=== PATIENT | male | born 1950 | race Caucasian/White ===

== ENCOUNTER 2019-07-18 05:45 | Outpatient (CLI) | payer MEDICARE ==
[2019-07-18 09:36] LABS: Hemoglobin 14.8 g/dL (14.0-18.0); Mean Corpuscular HGB CONC 34.3 g/dL (32.0-36.0); Mean Corpuscular Volume 96.2 fL (78.0-98.0); Mean Platelet Volume 8.3 fL (7.4-10.4); Platelet Count 211 thou/uL (130-400); RBC Distribution Width 11.6 % (11.5-14.5); Red Blood Cell (RBC) Count 4.47 mill/uL (4.70-6.10); White Blood Cell (WBC) Count 4.8 thou/uL (4.8-10.8)
[2019-07-18 09:43] LABS: PTT 31.1 SEC (22.9-36.1); Prothrombin Time 13.4 SEC (12.0-14.7)
[2019-07-18 09:54] LABS: Anion Gap 12 mmol/L (10-20); BUN (Urea Nitrogen) 20 mg/dL (8.4-25.7); Calc. Creatinine Clearance 0 mL/min (70-130); Calcium 9.7 mg/dL (7.8-10.44); Carbon Dioxide 25 mmol/L (23-31); Chloride 108 mmol/L (98-107); Estimated GFR-MDRD 55; Glucose 202 mg/dL (80-115); Potassium 4.7 mmol/L (3.5-5.1); Sodium 140 mmol/L (136-145)
== END 2019-07-18 05:46 | disposition home or self-care (01) ==
LOC: LABBT 05:45
PROVIDERS: ATTEND Surgery
DX: Z01.812 Encounter for preprocedural laboratory examination (principal); M54.16 Radiculopathy, lumbar region; M48.061 Spinal stenosis, lumbar region without neurogenic claudication
CPT/HCPCS: 80048; 85027; 85610; 85730

== ENCOUNTER 2019-07-25 07:03 | Day surgery (SDC) | payer MEDICARE ==
[2019-07-25] MEDS ORDERED: Promethazine HCl 25 MG/ML VIAL SLOW IVP PRN (08:54)
[2019-07-25] MEDS ORDERED: Promethazine HCl 25 MG/ML VIAL IM PRN (08:54)
[2019-07-25] MEDS ORDERED: Ondansetron HCl/PF 4 MG/2 ML Vial IVP PRN (08:54)
[2019-07-25] MEDS ORDERED: Fentanyl 250 MCG/5 ML VIAL ONE (08:56)
[2019-07-25] MEDS ORDERED: Thrombin 5000 UNITS/5 ML VIAL ONE (09:10)
[2019-07-25] MEDS ORDERED: Sodium Chloride 0.9% 10 ML ONE (09:10)
[2019-07-25] MEDS ORDERED: PHENYLEPHRINE-NS 100 MCG/ML 10 ML SYRINGE ONE (09:30)
[2019-07-25] MEDS ORDERED: Ondansetron PF 4 MG/2 ML Vial ONE (09:30)
[2019-07-25] MEDS ORDERED: Rocuronium Bromide 10 MG/ML (10ML VIAL) ONE (09:30)
[2019-07-25] MEDS ORDERED: PROPOFOL 200 MG/20 ML VIAL ONE (09:30)
[2019-07-25] MEDS ORDERED: ePHEDrine/0.9% NaCl/PF SYRINGE 50 mg/10 ml ONE (09:30)
[2019-07-25] MEDS ORDERED: Glycopyrrolate 0.2 MG/ML 5 ML SYRINGE ONE (09:30)
[2019-07-25] MEDS ORDERED: Morphine 2 MG/ML SYRINGE SLOW IVP PRN (12:17)
[2019-07-25] MEDS ORDERED: Acetaminophen 325 MG TAB PO PRN (12:17)
[2019-07-25] MEDS ORDERED: Milk Of Magnesia 30 ML UDCUP PO PRN (12:17)
[2019-07-25] MEDS ORDERED: Mag-Al 1200 mg/1200 mg/30 ML UDCUP PO PRN (12:17)
[2019-07-25] MEDS ORDERED: traMADol HCl 50 MG TAB PO PRN (12:17)
[2019-07-25] MEDS ORDERED: Ondansetron PF 4 MG/2 ML Vial IVP PRN (12:17)
[2019-07-25] MEDS ORDERED: Fleet Enema 133 ML BOT PR PRN (12:17)
[2019-07-25] MEDS ORDERED: Bisacodyl 10 MG SUPP PR PRN (12:17)
[2019-07-25] MEDS ORDERED: Acetaminophen/Codeine 30-300mg Tablet PO PRN (12:17)
[2019-07-25] MEDS ORDERED: Fentanyl 100 MCG/2 ML VIAL ONE (12:40)
[2019-07-25] MEDS ORDERED: Cholecalciferol (Vitamin D3) [Vitamin D3] 50,000 UNIT PO SCH (13:00)
[2019-07-25] MEDS: Sodium Chloride 0.9% 1,000 ML IV SCH (14:18)
[2019-07-25 14:27] VITALS: BMI 35.9
--- NOTE | 2019-07-25 14:33 | OP ---
DATE OF PROCEDURE: 07/25/2019 TABLEAU ADMINISTRATOR: King Li PA-C PREPROCEDURE DIAGNOSIS: Multilevel lumbar stenosis with low back and leg pain. POSTPROCEDURE DIAGNOSIS: Multilevel lumbar stenosis with low back and leg pain. LOCATION: OR 11. PROCEDURE PERFORMED: L3-L4 and L4-L5 laminectomies, partial facetectomies, foraminotomies over the L3, L4, L5 nerve roots. DESCRIPTION OF PROCEDURE: After informed consent was obtained from the patient, the patient was brought to the OR. Proper patient, pause, and identification were carried out. He was placed under excellent endotracheal anesthesia and positioned prone on the OR table. All appropriate bony points were padded. We identified the L3, L4, L5 dorsal spines and lamina and a linear bea was made over this region. This area was sterilely cleansed, prepared, and draped. Proper patient, pause, and identification were carried out. The wound was then opened with a combination of sharp, monopolar, and blunt dissection. The L3, L4, L5 dorsal spines and lamina were exposed. Localization film confirmed our area of interest. We then performed L3, L4, L5 laminectomies, partial facetectomies, and foraminotomies over those segments. There was no spinal fluid leak. Copious irrigation occurred throughout as to maximize hemostasis. The wound was then closed in anatomic layers following sprinkling of vancomycin powder. The patient was then emerged from anesthesia. Job ID: [id number]
[2019-07-25] MEDS: CEFAZOLIN 2 GM in Premix Bag 1 BAG IVPB SCH (17:05)
[2019-07-25] MEDS: metFORMIN 500 MG TAB PO SCH (17:05)
[2019-07-25] MEDS: glipiZIDE 10 MG TAB PO SCH (17:09)
[2019-07-25] MEDS: HYDROcodone/Acetaminophen 7.5/325 mg Tablet PO PRN ×2 (18:07→22:45)
[2019-07-25] MEDS ORDERED: Metoprolol Tartrate 50 MG TAB PO SCH (21:00)
[2019-07-25] MEDS ORDERED: Losartan 25 MG TAB PO SCH (21:00)
[2019-07-25] MEDS ORDERED: Simvastatin 5 MG TAB PO SCH (21:00)
[2019-07-25] MEDS ORDERED: Fenofibrate Nanocrystallized 145 MG TAB PO SCH (21:00)
[2019-07-25] MEDS: tiZANidine HCl 4 MG TAB PO PRN (22:46)
[2019-07-26] MEDS: CEFAZOLIN 2 GM in Premix Bag 1 BAG IVPB SCH (01:23)
[2019-07-26] MEDS: Sodium Chloride 0.9% 1,000 ML IV SCH (02:27)
[2019-07-26] MEDS: HYDROcodone/Acetaminophen 7.5/325 mg Tablet PO PRN ×2 (06:24→11:29)
[2019-07-26] MEDS: tiZANidine HCl 4 MG TAB PO PRN ×2 (06:25→11:29)
[2019-07-26] MEDS: glipiZIDE 10 MG TAB PO SCH (06:27)
[2019-07-26] MEDS: metFORMIN 500 MG TAB PO SCH (07:36)
[2019-07-26] MEDS ORDERED: Dapagliflozin Propanediol [Farxiga] PO SCH (09:00)
[2019-07-26 11:37] VITALS: BP 133/67; TEMP 98.4
--- NOTE | 2019-07-26 12:25 | PRG ---
DATE OF SERVICE: 07/26/2019 Mr. King is postoperative day 1 from L3 through L5 laminectomy, partial facetectomy, and foraminotomies. He is mobilizing. He has improvement in his leg pain. He is voiding on his own with good strength. We went over do's and don'ts in the postoperative period. He will be dismissed. Job ID: [id number]
[2019-07-26] MEDS ORDERED: Prevnar 13-Val Conj/PF 0.5 ML SYRINGE IM ONE (14:30)
[2019-07-26] MEDS ORDERED: FLU VACC TS2019-20(65YR UP)/PF 180 MCG/0.5 ML SYRINGE IM ONE (14:30)
== END 2019-07-26 13:49 | disposition home or self-care (01) ==
LOC: SDC 07:03 → SJJU 13:33 → SDC 07-26 13:49
PROVIDERS: ATTEND Surgery
PROC: 01NB0ZZ Release Lumbar Nerve, Open Approach (ICD-10-PCS; principal; 2019-07-25)
DX: M48.061 Spinal stenosis, lumbar region without neurogenic claudication (principal); M54.16 Radiculopathy, lumbar region; I10 Essential (primary) hypertension; E78.5 Hyperlipidemia, unspecified; I25.10 Atherosclerotic heart disease of native coronary artery without angina pectoris; F17.210 Nicotine dependence, cigarettes, uncomplicated; Z79.82 Long term (current) use of aspirin; Z79.84 Long term (current) use of oral hypoglycemic drugs; Z79.899 Other long term (current) drug therapy
CPT/HCPCS: 36416; 76000; J0690; J2405; J2704; J3010; J3370; J3490